=== PATIENT | male | born 1940 | race Asian ===

== ENCOUNTER 2019-02-17 07:13 | Day surgery (SDC) | payer OTHER ==
--- NOTE | 2019-02-15 15:30 | NUR ---
PREOP LABS, CXR AND EKG RESULTS REVIEWED WITH ANESTHESIOLOGIST DR MACE. NO NEW ORDERS AT THIS TIME. DR BRANDT HAS ALSO RECEIVED A COPY OF THE RESULTS.
[~2019-02-17] VITALS: Ht 172.7 cm; Wt 70.3 kg
[2019-02-17 07:39] VITALS: BP 168/78
[2019-02-17 10:25] VITALS: BP 128/57
== END 2019-02-17 10:10 | disposition home or self-care (01) ==
LOC: DS 07:13 → OR 09:30 → DS 10:10
DX: E11.36 Type 2 diabetes mellitus with diabetic cataract (principal); H25.11 Age-related nuclear cataract, right eye; I12.9 Hypertensive chronic kidney disease with stage 1 through stage 4 chronic kidney disease, or unspecified chronic kidney disease; E11.22 Type 2 diabetes mellitus with diabetic chronic kidney disease; N18.9 Chronic kidney disease, unspecified; D64.9 Anemia, unspecified; M17.0 Bilateral primary osteoarthritis of knee; E03.9 Hypothyroidism, unspecified; E78.00 Pure hypercholesterolemia, unspecified; J45.909 Unspecified asthma, uncomplicated; I25.10 Atherosclerotic heart disease of native coronary artery without angina pectoris; Z98.890 Other specified postprocedural states; Z79.899 Other long term (current) drug therapy; Z79.84 Long term (current) use of oral hypoglycemic drugs; Z95.818 Presence of other cardiac implants and grafts; Z87.891 Personal history of nicotine dependence; Z86.73 Personal history of transient ischemic attack (TIA), and cerebral infarction without residual deficits
CPT/HCPCS: C1780; J2001; J2704; J3010; J7040

== ENCOUNTER → 2019-04-01 | Day surgery (SDC) | payer OTHER ==
[~2019-04-01] VITALS: Ht 172.7 cm; Wt 70.3 kg
[2019-04-01 10:40] VITALS: BP 135/59
== END | disposition home or self-care (01) ==
LOC: DS 06:34 → OR 08:30 → DS 09:00
DX: H25.12 Age-related nuclear cataract, left eye (principal); E11.36 Type 2 diabetes mellitus with diabetic cataract; I10 Essential (primary) hypertension; E78.00 Pure hypercholesterolemia, unspecified; E03.9 Hypothyroidism, unspecified; Z79.84 Long term (current) use of oral hypoglycemic drugs; Z79.899 Other long term (current) drug therapy
CPT/HCPCS: C1780; J2001; J2250; J3010; J7040